=== PATIENT | female | born 1955 | race American Indian/Alaskan Native ===

== ENCOUNTER 2017-04-05 19:22 | Emergency (ER) | payer SELFPAY ==
[2017-04-05 20:37] VITALS: BP 169/93
== END 2017-04-06 03:54 | disposition left against medical advice (07) ==
LOC: ED 19:22
DX: M79.604 Pain in right leg (principal); Z53.21 Procedure and treatment not carried out due to patient leaving prior to being seen by health care provider

== ENCOUNTER 2017-04-20 17:47 | Emergency (ER) | payer SELFPAY ==
--- NOTE | 2017-04-20 20:06 | Emergency Department Report ---
Blank Doc - Documentation Documentation: Patient is a 61-year-old [place] female who is a diabetic diet controlled diabetes with herbal supplements who states that for the past 4 years she has had a round target-like lesion on her right lateral calf that has been nontender and non-bothersome. For the past 2 weeks the patient states this has reddened more it is tender and she also is having some tenderness in the posterior knee as well. Patient has been a new living situation and is been eating a lot more junk food but she has not checked her sugar does not know if of her diabetes is in control her [id number]. Patient denies any chest pain shortness of breath leg swelling at this time. Patient will be moved to the treatment area will check labs. Patient will have CBC done to rule out the elevations of her white count chemistries B Trish make sure the patient does not have hyperglycemia and DKA and a d-dimer will be ordered to rule out clotting disorder potential.
[2017-04-20 20:35] LABS: Basophils # (Auto) 0.1 K/mm3 (0.0-0.1); Basophils % (Auto) 1.4 % (0.0-1.8); Eosinophils # (Auto) 0.1 K/mm3 (0.0-0.4); Eosinophils % (Auto) 0.8 % (0.0-4.3); Hematocrit 39.5 % (30.3-42.9); Lymphocytes # (Auto) 3.6 K/mm3 (1.2-5.4); Lymphocytes % (Auto) 45.2 % (13.4-35.0); Mean Corpuscular HGB Conc 33 % (30-34); Mean Corpuscular Hemoglobin 26 pg (28-32); Mean Corpuscular Volume 80 fl (79-97); Monocytes # (Auto) 0.4 K/mm3 (0.0-0.8); Monocytes % (Auto) 5.6 % (0.0-7.3); Platelet Count 266 K/mm3 (140-440); Red Blood Count 4.93 M/mm3 (3.65-5.03)
[2017-04-20 20:48] LABS: BUN/Creatinine Ratio 20; Blood Urea Nitrogen 14 mg/dL (7-17); Calcium 8.8 mg/dL (8.4-10.2); Hemolysis Index 31
[2017-04-20 21:03] LABS: Bacteria,Urine 1+ /HPF (Negative); Bilirubin,Urine NEG (Negative); Blood,Urine MOD (Negative); Color,Urine Yellow (Yellow); Mucus,Urine FEW /HPF; Nitrite,Urine NEG (Negative); Protein,Urine <15 mg/dL mg/dL (Negative); Urobilinogen,Urine < 2.0 mg/dL (<2.0)
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
[2017-04-20] MEDS ORDERED: LOVENOX SUB-Q ONE (22:08)
[2017-04-20 22:29] VITALS: BP 171/85
== END 2017-04-20 22:32 | disposition home or self-care (01) ==
LOC: ED 17:47
DX: M79.604 Pain in right leg (principal); I10 Essential (primary) hypertension; E11.9 Type 2 diabetes mellitus without complications; J45.909 Unspecified asthma, uncomplicated; Z90.710 Acquired absence of both cervix and uterus; Z90.49 Acquired absence of other specified parts of digestive tract; Z88.0 Allergy status to penicillin
CPT/HCPCS: 36415; 80048; 81001; 85025; 85379; 99283; J1650

== ENCOUNTER 2017-04-23 10:50 | Outpatient (CLI) | payer OTHER | END 2017-04-23 10:51 | disposition home or self-care (01) | LOC: VAS 10:50 | PROVIDERS: ATTEND Emergency Medicine | DX: M79.604 Pain in right leg (principal); M79.89 Other specified soft tissue disorders ==

== ENCOUNTER 2017-11-28 15:21 | Emergency (ER) | payer SELFPAY ==
[2017-11-28 17:01] VITALS: BP 115/85
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
== END 2017-11-28 18:36 | disposition home or self-care (01) ==
LOC: ED 15:21
DX: T16.2XXA Foreign body in left ear, initial encounter (principal); I10 Essential (primary) hypertension; E11.9 Type 2 diabetes mellitus without complications; J45.909 Unspecified asthma, uncomplicated; Z90.710 Acquired absence of both cervix and uterus; Z88.1 Allergy status to other antibiotic agents; X58.XXXA Exposure to other specified factors, initial encounter; Y93.89 Activity, other specified; Y92.89 Other specified places as the place of occurrence of the external cause; Y99.8 Other external cause status

== ENCOUNTER 2018-07-02 18:18 | Emergency (ER) | payer OTHER ==
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
[2018-07-02 18:30] VITALS: BP 137/84
[2018-07-02 19:36] LABS: BUN/Creatinine Ratio 16; Blood Urea Nitrogen 11 mg/dL (7-17); Calcium 9.5 mg/dL (8.4-10.2); Hemolysis Index 2
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
== END 2018-07-03 00:40 | disposition home or self-care (01) ==
LOC: ED 18:18
DX: S86.912A Strain of unspecified muscle(s) and tendon(s) at lower leg level, left leg, initial encounter (principal); S20.212A Contusion of left front wall of thorax, initial encounter; M25.512 Pain in left shoulder; I10 Essential (primary) hypertension; E11.9 Type 2 diabetes mellitus without complications; J45.909 Unspecified asthma, uncomplicated; G47.30 Sleep apnea, unspecified; G51.0 Bell's palsy; Z90.710 Acquired absence of both cervix and uterus; V89.2XXA Person injured in unspecified motor-vehicle accident, traffic, initial encounter; Y93.89 Activity, other specified; Y92.488 Other paved roadways as the place of occurrence of the external cause; Y99.8 Other external cause status; Z88.1 Allergy status to other antibiotic agents
CPT/HCPCS: 36415; 71046; 73562; 74177; 80048; 93005; 93010; 99284; Q9967

== ENCOUNTER 2019-04-27 09:48 | Emergency (ER) | payer SELFPAY ==
[2019-04-27 10:21] VITALS: BP 155/75
--- NOTE | 2019-04-27 11:52 | Event Note ---
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
--- NOTE | 2019-04-27 12:01 | Emergency Department Report ---
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 has not seen an orthopedic doctor no fall or injury no numbness or weakness states she has carpal tunnel and occasional feels tingling in her left hand vss on exam: no bony ttp of the left ankle, very mild amount of edema, no erythema, no increased warmth, FROM of the left ankle, foot, and toes, neurovascularly intact, achilles intact, no calf ttp No signs of DVT, septic joint, no traumatic injury, no gout Could be related to osteoarthritis or rheumatoid arthritis Advised patient that she would need further testing by her primary care doctor or an orthopedic Patient is presenting with a nonmedical emergency at this time, no threat to life or limb at this time Patient referred to the appropriate resources Discussed in detail with patient strict return precautions - Exam Vital Signs: Vital Signs 04/27/19 10:19 Temperature 98.0 F Pulse Rate 81 Respiratory 20 Rate Blood Pressure 155/75 O2 Sat by Pulse 99 Oximetry MSE screening note: Focused history and physical exam performed. ED Disposition for MSE Clinical Impression: Left ankle pain Qualifiers: Chronicity: acute Qualified Code(s): M25.572 - Pain in left ankle and joints of left foot Disposition: Z-07 MED SCREENING EXAM-LEFT Is pt being admited?: No Does the pt Need Aspirin: No Condition: Stable Instructions: Arthralgia (ED) Additional Instructions: please take tylenol or ibuprofen over the counter as needed. may use ice pack, heating pad, rest, epsom salt bath, elevation of the leg. follow up with a primary care doctor and orthopedic doctor. return to the emergency room for any new or worsening symptoms. Referrals: JORGE PORTILLO MD [Primary Care Provider] - 2-3 Days MISTY PACHECO MD [Staff Physician] - 2-3 Days [facility] [Provider Group] - 2-3 Days Time of Disposition: 11:59 Print Language: AZERI
== END 2019-04-27 12:41 | disposition left against medical advice (07) ==
LOC: ED 09:48
DX: M25.572 Pain in left ankle and joints of left foot (principal)
CPT/HCPCS: 99281